=== PATIENT | male | born 1960 | race Caucasian/White ===

== ENCOUNTER → 2016-12-15 | Outpatient (CLI) | payer OTHER ==
[~2016-12-15] MED LIST: ALLGUNK; LSNUNK
[2016-12-15 12:23] LABS: BASO % 0.3 %; BASO ABS # 0.03 K/uL (0-0.2); COMPLETE YES; EOS % 2.8 %; HEMATOCRIT 46.7 % (42-52); IG% 0.3 %; LYMPH % 16.8 %; LYMPH ABS # 1.63 K/uL (1.2-3.4); MEAN CELL VOLUME 94.3 fL (80-100); MEAN CORPUSCULAR HEMOGLOBIN 32.9 pg (25-34); MEAN CORPUSCULAR HGB CONC 34.9 g/dl (32-36); MEAN PLATELET VOLUME 10.7 fL (7.4-10.4); MONO % 13.3 %; NEUT % 66.5 %; PLATELET COUNT 162 K/uL (130-400); RED BLOOD COUNT 4.95 M/uL (4.7-6.1)
[2016-12-15 12:53] LABS: ALT/SGPT 56 U/L (12-78); AST/SGOT 28 U/L (15-37); BLOOD UREA NITROGEN 12 mg/dl (7-18); BUN/CREATININE RATIO 9.9 (10-20); CALCIUM 9.1 mg/dl (8.5-10.1); CARBON DIOXIDE 25 mmol/L (21-32); CHLORIDE 108 mmol/L (98-107); CHOLESTEROL 162 mg/dl (0-200); GLUCOSE 118 mg/dl (70-99); POTASSIUM 4.8 mmol/L (3.5-5.1); SODIUM 140 mmol/L (136-145)
[2016-12-15 13:03] LABS: ALB/GLOB RATIO 1.1 (0.9-2); ALKALINE PHOSPHATASE 56 U/L (45-117); CHOLESTEROL/HDL RATIO 4.9; HDL CHOLESTEROL 33 mg/dl; LDL CHOLESTEROL CALCULATED 84 mg/dl; PROSTATE SPECIFIC ANTIGEN 0.401 ng/ml (0.000-4.000); TRIGLYCERIDES 224 mg/dl (0-150); VERY LOW DENSITY LIPOPROT CALC 45 mg/dl
== END | disposition home or self-care (01) ==
LOC: C.LABBFT 10:00
PROVIDERS: ATTEND Physician Assistant Medical
DX: Z13.6 Encounter for screening for cardiovascular disorders (principal); Z12.5 Encounter for screening for malignant neoplasm of prostate; I10 Essential (primary) hypertension; N52.9 Male erectile dysfunction, unspecified

== ENCOUNTER → 2017-01-03 | Outpatient (CLI) | payer OTHER, BC ==
[2017-01-04 08:28] LABS: ESTIMATED AVERAGE GLUCOSE 108 mg/dl; HA1C FLAG Normal (Normal)
== END | disposition home or self-care (01) ==
LOC: C.LAB1850 17:00
PROVIDERS: ATTEND Physician Assistant Medical
DX: R73.09 Other abnormal glucose (principal)

== ENCOUNTER → 2017-01-04 | Outpatient (CLI) | payer OTHER, BC | END | disposition home or self-care (01) | LOC: C.PATH 11:37 | PROVIDERS: ATTEND Dentist Endodontics | DX: K04.7 Periapical abscess without sinus (principal) ==

== ENCOUNTER 2017-10-27 14:55 | Emergency (ER) | payer BC, OTHER ==
[~2017-10-27] VITALS: Ht 180.3 cm; Wt 121.0 kg
[2017-10-27 15:00] VITALS: Ht 180.3 cm; Wt 121.0 kg
[2017-10-27] MEDS ORDERED: CEPHALEXIN MONOHYDRATE 250 MG CAP PO STA (15:12)
[2017-10-27] MEDS ORDERED: SULFAMETHOXAZOLE/TRIMETHOPRIM DS 800/160MG TAB PO STA (15:12)
[2017-10-27] MEDS ORDERED: DIPHTHERIA/TETANUS/PERTUSSIS 0.5 ML SYR/VIAL IM. ONE (15:15)
[2017-10-27] MEDS ORDERED: LISI40TA PO (15:22)
[2017-10-27] MEDS ORDERED: HYDR25TA4 PO (15:22)
[2017-10-27] MEDS ORDERED: MULT-351 PO (15:22)
[2017-10-27] MEDS ORDERED: SULF800T23 PO (15:46)
[2017-10-27] MEDS ORDERED: CEPH500C PO (15:46)
--- NOTE | 2017-10-27 15:48 | EMERGENCY ROOM VISIT NOTE ---
ED Visit Note First contact with patient: 15:05 CHIEF COMPLAINT: Swelling, warmth, redness, pain of the left index finger, possible foreign body HISTORY OF PRESENT ILLNESS: This 57-year-old male patient presents to the emergency department, ambulatory, complaining of swollen, warm, painful left index finger. 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 He states he was unloading about and got his finger caught in a chain while reaching. He states there is immediately some blood and pain. This occurred approximately 9 AM. As the day went on, the patient states the symptoms became worse, and he is now experiencing redness , swelling, and worsening pain. The patient denies fever, chills, nausea, or loss of appetite. Movement of the left index finger at the DIP joint is mildly decreased because of the pain. The patient's tetanus shot is not up to date. REVIEW OF SYSTEMS: A 10 system review of systems was performed with positives and pertinent negatives listed in the history of present illness. All other systems were reviewed and are negative. ALLERGIES: Percocet MEDICATIONS: Lisinopril PMH: Hypertension SOCIAL HISTORY: The patient lives locally with family. He denies drug, alcohol , tobacco use. PHYSICAL EXAM: Vital Signs: Reviewed Nurse's notes, Temperature 36.8C, vital signs stable. GENERAL: This is a 57-year-old white male, in no acute distress, is non toxic in appearance, well-developed, well-nourished. SKIN: The distal phalanx of the left index finger is slightly red, warm, very tender, and swollen. There is no lymphangitic streaking. There is no discharge. There is no fluctuance. There is no induration. There is a small puncture wound over the anterior aspect of the distal phalanx. There is no active bleeding or drainage. HEART: Regular rate and rhythm without murmur, gallop, or rub. LUNGS : Clear to auscultation bilaterally without wheezes, rales, or rhonchi. NEURO: Alert and oriented to person, place, and time. Normal sensation to light and sharp touch. Capillary reflex less than 2 seconds. Peripheral pulses 2 + bilaterally. RADIOLOGY: LEFT SECOND FINGER 3 VIEWS CLINICAL HISTORY: Finger injury. Foreign body assessment. FINDINGS: 3 views of the left second finger are obtained. No prior studies are available for comparison at the time of dictation. The skeletal structures are well mineralized. No fracture is seen. The second metacarpophalangeal and interphalangeal joints appear maintained. Mild soft tissue swelling is noted in the second finger. No radiodense foreign body is seen. IMPRESSION: 1. Soft tissues swelling with no acute bony abnormality seen in the left second finger. 2. No radiodense foreign body is identified. Electronically signed by: Gerald Valles M.D. 10/27/2017 4:01 PM Dictated Date/Time: 10/27/2017 3:59 PM EMERGENCY DEPARTMENT COURSE: I examined the patient. He was given a tetanus vaccination. The patient's symptoms are consistent with an acute cellulitis. There is no signs of abscess at this time. There is no foreign body noted on x- ray as interpreted by myself and radiologist. The patient will be started on Keflex and Bactrim for the cellulitis, as his symptoms injury involves a compost /[employer] facility. The patient was agreeable to this plan. He was given his first dose of antibiotics here in the emergency department. Discharge instructions reviewed, the patient was discharged home in good condition. I attest that I have personally reviewed the patient's current medication list. Blood Pressure Screening: Patient was found to have a slightly elevated blood pressure due to circumstances. I do not believe that the patient requires hypertension monitoring. Differential diagnosis includes fracture, foreign body, cellulitis, abscess, septic joint, necrotizing fasciitis, burn, dermatitis, impetigo, erythema multiforme, bite, osteomyelitis, Paris-Abhay Syndrome, gangrene, malignancy , and others DIAGNOSIS: Cellulitis of the left index finger The chart was completed utilizing [employer] voice recognition software. Grammatical errors, random word insertions, pronoun errors, and incomplete sentences are an occasional consequence of this system due to software limitations, ambient noise, and hardware issues. Any formal questions or concerns about the content, text, or information contained within the body of this dictation should be directly addressed to the provider for clarification. Current/Historical Medications Scheduled Cephalexin Monohydrate (Keflex), 500 MG PO QID Hydrochlorothiazide (Hctz), 25 MG PO DAILY Lisinopril (Zestril), 40 MG PO DAILY Multiple Vitamin (Multi Vitamin Mens), 1 TAB PO DAILY Sulfa/Trimethoprim (Bactrim Ds 800MG/160MG), 1 TAB PO BID Allergies Coded Allergies: Oxycodone (Verified Allergy, Intermediate, Itchiness, 10/27/17) Vital Signs Date Time Temp Pulse Resp B/P (MAP) Pulse Ox O2 Delivery O2 Flow Rate FiO2 10/27/17 15:00 36.8 92 16 147/93 98 Room Air Medications Administered Medications (Trade) Dose Ordered Sig/Roxana Route Start Time Stop Time Status Last Admin Dose Admin Cephalexin Monohydrate (Keflex Cap) 500 mg NOW STAT PO 10/27/17 15:12 10/27/17 15:14 DC 10/27/17 15:27 500 MG Trimethoprim/ Sulfamethoxazole (Septra Ds 800/ 160MG Tab) 1 tab NOW STAT PO 10/27/17 15:12 10/27/17 15:14 DC 10/27/17 15:27 1 TAB Diphtheria/ Pertussis/Tetanus Vacc (Adacel Inj) 0.5 ml ONCE ONCE IM. 10/27/17 15:15 10/27/17 15:16 DC 10/27/17 15:29 0.5 ML Departure Information Impression Primary Impression: Cellulitis of left index finger Dispostion Home / Self-Care Condition GOOD Prescriptions Sulfa/Trimethoprim (Bactrim Ds 800MG/160MG) Tab 1 TAB PO BID for 7 Days, #14 TAB Prov: Idalmis Plascencia PA-C 10/27/17 Cephalexin Monohydrate (Keflex) 500 Mg Cap 500 MG PO QID for 7 Days, #28 CAP Prov: Idalmis Plascencia PA-C 10/27/17 Referrals Donald Sanchez M.D. (PCP) Patient Instructions ED Infec Skin Cellulitis, My [facility] Additional Instructions You were seen in the emergency department today for a left finger injury. As discussed, x-ray did not show any obvious fracture or foreign body. I suspect cellulitis as the cause of the redness, swelling, and pain. This is a skin infection, which I suspect is related to the open wound caused by dirty machinery. Cephalexin(Keflex) 500mg: Take one pill four times daily for 7 days for your skin infection. All antibiotics can cause diarrhea. If this occurs and you feel worse or it does not resolve in 1-2 days follow up with your doctor or return to the Emergency Department as this could be signs of serious underlying problems. Any medication can cause an allergic reaction, stop the pills immediately and return to the ER for rash, hives, breathing difficulties, or swelling. Trimethoprim-Sulfamethoxazole(Bactrim DS): Take one pill twice daily for 7 days for your skin infection. All antibiotics can cause diarrhea. If this occurs and you feel worse or it does not resolve in 1-2 days follow up with your doctor or return to the Emergency Department as this could be signs of serious underlying problems. Any medication can cause an allergic reaction, stop the pills immediately and return to the ER for rash, hives, breathing difficulties, or swelling. Ibuprofen(Motrin, Advil) may be used for fever or pain. Use 600mg every six hours as needed. Take with food. Avoid using more than 2400mg in a 24 hour period. Do not use 2400mg per day for more than three consecutive days without physician direction. Prolonged inappropriate use can lead to stomach upset or ulcers. (AND/OR) Acetaminophen(Tylenol) may be used for fever or pain. Use 1000mg every six hours as needed. Avoid using more than 3000mg in a 24 hour period. Follow-up with your PCP/worker's compensation providers in 2-3 days for re- check of the wound. Return immediately to the ED for worsening swelling, redness, drainage, pus, nausea, vomiting, fever, chills, or other concerning or systemic symptoms.
--- NOTE | 2017-10-27 16:03 | DIAGNOSTIC IMAGING REPORT ---
LEFT SECOND FINGER 3 VIEWS CLINICAL HISTORY: Finger injury. Foreign body assessment. FINDINGS: 3 views of the left second finger are obtained. No prior studies are available for comparison at the time of dictation. The skeletal structures are well mineralized. No fracture is seen. The second metacarpophalangeal and interphalangeal joints appear maintained. Mild soft tissue swelling is noted in the second finger. No radiodense foreign body is seen. IMPRESSION: 1. Soft tissues swelling with no acute bony abnormality seen in the left second finger. 2. No radiodense foreign body is identified. Electronically signed by: Gerald Valles M.D. 10/27/2017 4:01 PM Dictated Date/Time: 10/27/2017 3:59 PM
[2017-10-27 16:43] VITALS: BP 147/93; PULSE 89; TEMP 36.8; O2SAT 98
== END 2017-10-27 16:25 | disposition home or self-care (01) ==
LOC: C.EDB 14:58 → C.EDD 16:25
DX: L03.012 Cellulitis of left finger (principal); W29.3XXA Contact with powered garden and outdoor hand tools and machinery, initial encounter; I10 Essential (primary) hypertension; Z88.0 Allergy status to penicillin; Z79.899 Other long term (current) drug therapy; Z23 Encounter for immunization